=== PATIENT | female | born 1970 | race African-American/Black ===

== ENCOUNTER 2018-04-17 10:55 | Emergency (ER) | payer OTHER ==
[~2018-04-17] VITALS: Ht 170.2 cm; Wt 96.8 kg
[2018-04-17 11:00] VITALS: BP 123/78
--- NOTE | 2018-04-17 11:11 | NUR ---
PT AMBULATES TO BED 1
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
--- NOTE | 2018-04-17 12:28 | NUR ---
PATIENT BEING EVALUATED BY DR COSTA
[2018-04-17] MEDS ORDERED: IBUPROFEN 600 MG TAB PO ONE (12:50)
[2018-04-17 14:12] VITALS: BP 127/80
--- NOTE | 2018-04-17 14:13 | NUR ---
Patient discharged with v/s stable. Written and verbal after care instructions given and explained. Patient alert, oriented and verbalized understanding of instructions. Ambulatory with steady gait. All questions addressed prior to discharge. ID band removed. Patient advised to follow up with PMD. Rx of VOLTAREN XR given. Patient educated on indication of medication including possible reaction and side effects. Opportunity to ask questions provided and answered.
== END 2018-04-17 14:13 | disposition home or self-care (01) ==
LOC: MED 10:55
DX: S13.9XXA Sprain of joints and ligaments of unspecified parts of neck, initial encounter (principal); S33.5XXA Sprain of ligaments of lumbar spine, initial encounter; Z88.0 Allergy status to penicillin; V43.52XA Car driver injured in collision with other type car in traffic accident, initial encounter; Y93.89 Activity, other specified; Y92.410 Unspecified street and highway as the place of occurrence of the external cause; Y99.8 Other external cause status
CPT/HCPCS: 71046; 72040; 72100; 99283